=== PATIENT | female | born 1935 | race Caucasian/White ===

== ENCOUNTER 2018-10-29 11:43 | Emergency (ER) | payer MEDICARE, OTHER ==
[~2018-10-29 11:43] MED LIST changes: -ALB6.7R INH; -AZIT-1 PO
--- NOTE | 2018-10-29 11:57 | ER Report ---
History and Physical Time Seen By MD: 11:58 Hx. of Stated Complaint: PATIENT WAS SENT BY URGENT CARE FOR CHEST PAIN HPI/ROS 83-year-old female presented to an urgent care for cough and congestion. She made mention of chest pain to the urgent care staff. She had an abnormal EKG and was subsequently sent to the emergency department. In the emergency department she denied chest pain. She states that she told the urgent care she is chest pain with her cough. She is able to stack and move would the past few days without having chest pain, however complains about a cough and shortness of breath. No nausea vomiting or diarrhea. She has never a smoker. No fever chills. She also reports mild peripheral edema in her lower extremities, but states that his actually improved. Remainder of the 14 system rev: Yes Allergies: Coded Allergies: Sulfa (Sulfonamide Antibiotics) (Verified Allergy, Severe, "Mouth Swelled", 04/29/16) Home Meds Active Scripts Albuterol Sulfate (PROVENTIL HFA) 6.7 Gm Inh, 1-2 PUFF INH 3-4XD for 7 Days, #1 INH Prov:REBECCA ABRAHAM MD 10/29/18 Azithromycin (ZITHROMAX) 250 Mg Tablet, 1 TAB PO QDAY for 4 Days, #4 TAB Prov:REBECCA ABRAHAM MD 10/29/18 Reported Medications Calcium Crb&Cit/D3/Min34/Carter (CITRACAL + BONE DENSITY TABLET) 1 Each Tablet, 1 EACH PO DAILY 04/06/16 Telmisartan (Telmisartan) 80 Mg Tablet, 1 TAB PO QDAY 04/06/16 Discontinued Reported Medications Cholecalciferol (Vitamin D3) (VITAMIN D-3) 2,000 Unit Capsule, PO, CAPSULE 04/29/16 Cyanocobalamin (Vitamin B-12) (VITAMIN B-12) 1,000 Mcg Tablet.er, PO 04/29/16 [place]-3 Fatty Acids (FISH OIL) Unknown Strength Capsule, 300 MG PO, CAPSULE 04/06/16 [Maxi Vision] Unknown Strength No Conflict Check 04/06/16 Denosumab (PROLIA) 60 Mg/1 Ml Injs, 60 MG SUBQ Every 6 Months 04/06/16 Reviewed Nurses Notes: Yes Old Medical Records Reviewed: Yes Hx Smoking: No Smoking Status: Never Smoker Hx Substance Use Disorder: No Hx Alcohol Use: Yes Constitutional Vital Sign - Last 24 Hours 10/29/18 10/29/18 10/29/18 10/29/18 11:43 11:51 11:52 12:12 Pulse ??? 112 Resp 24 B/P (MAP) 162/101 (121) 162/101 150/84 (106) Pulse Ox 96 O2 Delivery Room Air 10/29/18 10/29/18 10/29/18 10/29/18 12:13 12:20 12:23 12:30 Pulse 114 Resp 27 B/P (MAP) 147/91 (109) 143/93 (110) 142/90 (107) Pulse Ox 98 10/29/18 10/29/18 10/29/18 10/29/18 12:43 12:45 13:00 13:13 Pulse 116 114 Resp 21 35 B/P (MAP) 148/140 (143) 139/82 (101) Pulse Ox 92 95 10/29/18 10/29/18 10/29/18 10/29/18 13:15 13:30 14:00 14:15 Pulse 114 Resp 22 B/P (MAP) 91/75 (80) 154/87 (109) 127/90 (102) 143/97 (112) Pulse Ox 95 10/29/18 10/29/18 10/29/18 10/29/18 14:30 14:45 15:00 15:15 Pulse 113 116 Resp 9 24 B/P (MAP) 143/84 (103) 142/90 (107) 95/77 (83) Pulse Ox 96 89 Physical Exam General Appearance: The patient is alert, has no immediate need for airway protection and no current signs of toxicity. Eyes: Pupils equal and round no injection. Respiratory: Chest is non tender, lungs are clear to auscultation. Cardiac: regular rate and rhythm Gastrointestinal: Abdomen is soft and non tender, no masses, bowel sounds normal. Neck: Neck is supple and non tender. Extremities have full range of motion and are non tender. Skin: No rashes or lesions. DIFFERENTIAL DIAGNOSIS: After history and physical exam differential diagnosis was considered for shortness of breath including but not limited to pulmonary infectious process, COPD, asthma, pulmonary embolus and congestive heart failure. Medical Decision Making Data Points Result Diagram: 10/29/18 1138 10/29/18 1138 Laboratory Hematology Test 10/29/18 11:38 10/29/18 14:47 Red Blood Count 4.60 M/uL (4.17-5.56) Mean Corpuscular Volume 94.3 fL (80.0-96.0) Mean Corpuscular Hemoglobin 32.0 pg (26.0-33.0) Mean Corpuscular Hemoglobin Concent 33.9 g/dL (32.0-36.0) Red Cell Distribution Width 14.0 % (11.5-14.5) Mean Platelet Volume 8.0 fL (7.2-11.1) Neutrophils (%) (Auto) 79.9 % (39.4-72.5) Lymphocytes (%) (Auto) 14.7 % (17.6-49.6) Monocytes (%) (Auto) 4.7 % (4.1-12.4) Eosinophils (%) (Auto) 0.2 % (0.4-6.7) Basophils (%) (Auto) 0.5 % (0.3-1.4) Nucleated RBC Relative Count (auto) 0.0 /100WBC Neutrophils # (Auto) 8.0 K/uL (2.0-7.4) Lymphocytes # (Auto) 1.5 K/uL (1.3-3.6) Monocytes # (Auto) 0.5 K/uL (0.3-1.0) Eosinophils # (Auto) 0.0 K/uL (0.0-0.5) Basophils # (Auto) 0.0 K/uL (0.0-0.1) Nucleated RBC Absolute Count (auto) 0.00 K/uL D-Dimer Quantitative (PE/DVT) 0.95 ug/ml (0-0.50) Sodium Level 128 mmol/L (137-145) Potassium Level 4.8 mmol/L (3.5-5.0) Chloride Level 93 mmol/L (98-107) Carbon Dioxide Level 22 mmol/L (22-31) Blood Urea Nitrogen 12 mg/dl (7-18) Creatinine 0.80 mg/dl (0.52-1.04) Glomerular Filtration Rate Calc > 60.0 Random Glucose 127 mg/dl (75-110) Calcium Level 9.3 mg/dl (8.4-10.2) Total Bilirubin 0.9 mg/dl (0.2-1.3) Aspartate Amino Transf (AST/SGOT) 74 U/L (0-35) Alanine Aminotransferase (ALT/SGPT) 93 U/L (0-56) Alkaline Phosphatase 127 U/L (0-126) Total Protein 6.9 g/dl (6.3-8.2) Albumin 4.2 g/dl (3.5-5.0) Troponin I 0.029 ng/ml Chemistry Test 10/29/18 11:38 10/29/18 14:47 White Blood Count 10.0 k/uL (4.5-11.0) Red Blood Count 4.60 M/uL (4.17-5.56) Hemoglobin 14.7 g/dL (12.0-16.0) Hematocrit 43.4 % (34.0-47.0) Mean Corpuscular Volume 94.3 fL (80.0-96.0) Mean Corpuscular Hemoglobin 32.0 pg (26.0-33.0) Mean Corpuscular Hemoglobin Concent 33.9 g/dL (32.0-36.0) Red Cell Distribution Width 14.0 % (11.5-14.5) Platelet Count 337 K/uL (150-450) Mean Platelet Volume 8.0 fL (7.2-11.1) Neutrophils (%) (Auto) 79.9 % (39.4-72.5) Lymphocytes (%) (Auto) 14.7 % (17.6-49.6) Monocytes (%) (Auto) 4.7 % (4.1-12.4) Eosinophils (%) (Auto) 0.2 % (0.4-6.7) Basophils (%) (Auto) 0.5 % (0.3-1.4) Nucleated RBC Relative Count (auto) 0.0 /100WBC Neutrophils # (Auto) 8.0 K/uL (2.0-7.4) Lymphocytes # (Auto) 1.5 K/uL (1.3-3.6) Monocytes # (Auto) 0.5 K/uL (0.3-1.0) Eosinophils # (Auto) 0.0 K/uL (0.0-0.5) Basophils # (Auto) 0.0 K/uL (0.0-0.1) Nucleated RBC Absolute Count (auto) 0.00 K/uL D-Dimer Quantitative (PE/DVT) 0.95 ug/ml (0-0.50) Glomerular Filtration Rate Calc > 60.0 Calcium Level 9.3 mg/dl (8.4-10.2) Total Bilirubin 0.9 mg/dl (0.2-1.3) Aspartate Amino Transf (AST/SGOT) 74 U/L (0-35) Alanine Aminotransferase (ALT/SGPT) 93 U/L (0-56) Alkaline Phosphatase 127 U/L (0-126) Total Protein 6.9 g/dl (6.3-8.2) Albumin 4.2 g/dl (3.5-5.0) Troponin I 0.029 ng/ml Coagulation Test 10/29/18 11:38 D-Dimer Quantitative (PE/DVT) 0.95 ug/ml ED Course/Re-evaluation ED Course 83-year-old female with cough and congestion for the past 4-5 days. Sent to the emergency department due to an EKG at the urgent care which showed a left bundle branch block. I asked the patient multiple times if she had chest pain, and she stated that the only time she has chest pain is when she coughs. Able to move N Stack wanted the past couple days without chest pain. Serial EKGs show some ischemia in the lateral leads. 2 troponins are negative. I spoke with the family at length about her abnormal EKG is and one mention of chest pain that she had at the urgent care. The family states that they agree its more viral URI and at this point do not want to get any more aggressive with a chest pain workup including an admission for a stress test. I do think she likely has a component of some early CHF given her pleural effusions and mild peripheral edema. I suggested to the family that they follow up with Saranya Melgar Wednesday morning to see if the symptoms have improved. I did discharge her with an albuterol MDI and a prescription for a Z-Zachary. Decision to Disposition Date: Oct 29, 2018 Decision to Disposition Time: 15:32 Depart Departure Latest Vital Signs Vital Signs Date Time Temp Pulse Resp B/P (MAP) Pulse Ox O2 Delivery O2 Flow Rate FiO2 10/29/18 15:15 95/77 (83) 10/29/18 15:00 116 24 89 10/29/18 11:52 Room Air Impression: Primary Impression: Acute bronchitis Condition: Improved Disposition: HOME OR SELF-CARE Referrals: SARANYA MELGAR (PCP) New Scripts Albuterol Sulfate (PROVENTIL HFA) 6.7 Gm Inh 1-2 PUFF INH 3-4XD for 7 Days, #1 INH Prov: REBECCA ABRAHAM MD 10/29/18 Azithromycin (ZITHROMAX) 250 Mg Tablet 1 TAB PO QDAY for 4 Days, #4 TAB Prov: REBECCA ABRAHAM MD 10/29/18 Patient Instructions: Acute Bronchitis (ED) Problem Qualifiers Primary Impression: Acute bronchitis Bronchitis organism: unspecified organism Qualified Codes: J20.9 - Acute bronchitis, unspecified REBECCA ABRAHAM MD Oct 29, 2018 11:57
[2018-10-29] MEDS ORDERED: NITROGLYCERIN 0.4 MG SUBL SL ONE (12:15)
[2018-10-29 12:17] LABS: PLATELET COUNT, AUTOMATED 337 K/uL (150-450)
--- NOTE | 2018-10-29 13:02 | RADIOLOGY IMAGING REPORT ---
FACILITY: [facility] - [place] PATIENT NAME: Shena Parsons : 1935 MR: [id number] V: [id number] EXAM DATE: ORDERING PHYSICIAN: REBECCA ABRAHAM TECHNOLOGIST: [place] [facility] [place] Shena [place] : 1935 Visit/Account:[id number] Date of Sevice: 10/29/2018 EXAMINATION: Portable AP Chest 10/29/2018 12:12 PM HISTORY: chest pain COMPARISON: 10:39 AM today FINDINGS: Cardiomediastinal contours: Stable cardiac size. Atherosclerotic aorta. Lungs and pleura: Small bilateral effusions with pulmonary vascular engorgement. Minimal consolidatio n the bases is likely simply atelectasis. Bones/soft tissues: Normal IMPRESSION: Pulmonary vascular congestion and small bilateral effusions suggesting borderline to mild CHF. Report Dictated By: Domingo Bosch MD at 10/29/2018 12:56 PM Report E-Signed By: Domingo Bosch MD at 10/29/2018 12:57 PM WSN:[id number]
[2018-10-29] MEDS ORDERED: NS(*) 0.9% 50 ML BAG 50 ML ONE (13:39)
[2018-10-29] MEDS ORDERED: IOPAMIDOL 76% 75 ML INFUS BTL 75 ML ONE (13:39)
--- NOTE | 2018-10-29 13:51 | EKG ---
FACILITY: [facility] - [place] PATIENT NAME: MADELINE HOWELL : [id number] MR: [id number] V: [id number] EXAM DATE: ORDERING PHYSICIAN: REBECCA ABRAHAM TECHNOLOGIST: Test Reason : chest pain Blood Pressure : / mmHG Vent. Rate : 113 BPM Atrial Rate : 113 BPM P-R Int : 156 ms QRS Dur : 134 ms QT Int : 374 ms P-R-T Axes : 000 -46 094 degrees QTc Int : 513 ms Sinus tachycardia Left axis deviation Incomplete LBBB Diffuse ST findings Abnormal ECG No previous ECGs available Confirmed by DEBBY GONZALEZ ([id number]) on 10/30/2018 5:26:53 AM Referred By: Confirmed By:DEBBY GONZALEZ
--- NOTE | 2018-10-29 13:51 | EKG ---
[facility] PATIENT NAME: MADELINE HOWELL : [id number] MR: [id number] V: [id number] EXAM DATE: ORDERING PHYSICIAN: REBECCA ABRAHAM TECHNOLOGIST: Test Reason : active chest pain Blood Pressure : / mmHG Vent. Rate : 113 BPM Atrial Rate : 113 BPM P-R Int : 200 ms QRS Dur : 118 ms QT Int : 360 ms P-R-T Axes : 000 -33 110 degrees QTc Int : 493 ms Sinus tachycardia Left axis deviation Incomplete left bundle branch block Nonspecific ST and T wave abnormality Abnormal ECG Confirmed by DEBBY GONZALEZ ([id number]) on 10/30/2018 5:27:14 AM Referred By: Confirmed By:DEBBY GONZALEZ
--- NOTE | 2018-10-29 14:17 | RADIOLOGY IMAGING REPORT ---
FACILITY: [facility] PATIENT NAME: Shena Parsons : 1935 MR: [id number] V: [id number] EXAM DATE: ORDERING PHYSICIAN: REBECCA ABRAHAM TECHNOLOGIST: Location: [facility] - [place], [place] Patient: Shena Parsons : 1935 Visit/Account:[id number] Date of Sevice: 10/29/2018 EXAMINATION: CT CHEST PULMONARY ANGIOGRAM COMPARISON: Chest x-ray same day. HISTORY: Chest pain with tachycardia. PROCEDURE: Pulmonary arterial phase imaging of the chest with 75 mL intravenous Isovue 370. Reconstru ction of the source data set includes multiplanar 2D in the sagittal and coronal planes, and 3D recon structed coronal slab MIP series. One of the following dose optimization techniques was utilized in the performance of this exam: Autom ated exposure control; adjustment of the mA and/or kV according to the patient's size; or use of an i terative reconstruction technique. Specific details can be referenced in the facility's radiology C T exam operational policy. FINDINGS: Pulmonary vasculature: There is poor opacification of the distal segmental and subsegmental vessels i n both lower lungs; this is favored to be secondary to altered contrast dynamics, potentially related to cardiac disease, rather than due to pulmonary emboli. No pulmonary artery filling defect is other ryder identified. Dilated 3.5 cm main pulmonary artery. Cardiac and mediastinum: Moderate global cardiac chamber enlargement. No pericardial effusion. No tho racic aortic aneurysm. Lymph nodes: Negative. Lungs and pleura: Bilateral [id number] pleural effusions. Mild atelectasis. No consolidation o r nodule. No pneumothorax or edema. Airways: Negative. Upper abdomen: No evidence of acute disease within the visualized upper abdomen. Osseous structures: Mid and lower thoracic spine mild to moderate multilevel degenerative disc diseas e. At T11-T12, a posterior disc and osteophyte complex results in a mild to moderate degree of canal stenosis. No acute findings. IMPRESSION: 1. Limited evaluation of the lower lung distal segmental and subsegmental vessels. No pulmonary embol ism is otherwise identified. 2. Moderate cardiac chamber enlargement. Dilated main pulmonary artery is suggestive of pulmonary art elisabeth hypertension. 3. Small to moderate bilateral pleural effusions. No definite edema. Report Dictated By: Bobby Bradley MD at 10/29/2018 2:06 PM Report E-Signed By: Bobby Bradley MD at 10/29/2018 2:13 PM WSN:[id number]
[2018-10-29 15:15] VITALS: BP 95/77
[2018-10-29] MEDS ORDERED: AZITHROMYCIN 250 MG TAB PO ONE (15:15)
[2018-10-29] MEDS ORDERED: AZIT-1 PO (15:34)
[2018-10-29] MEDS ORDERED: ALB6.7R INH (15:34)
== END 2018-10-29 15:50 | disposition home or self-care (01) ==
LOC: ER 11:58
DX: J20.9 Acute bronchitis, unspecified (principal); I44.7 Left bundle-branch block, unspecified
CPT/HCPCS: 36415; 71045; 71275; 84484; 85025; 85379; 93005; 99284; J7050; Q0144; Q9967; 82040; 82247; 82310; 82374; 82435; 82565; 82947; 84075; 84132; 84155; 84295; 84450; 84460; 84520

== ENCOUNTER → 2018-10-29 | Outpatient (CLI) | payer MEDICARE, OTHER ==
[~2018-10-29] MED LIST: ALB6.7R INH; AZIT-1 PO; CALC-854 PO; CHOL200074 PO; CYAN100015 PO; DEN60I SUBQ; MAXI VISION; OMEG300C PO; TELM80TA4 PO
== END ==
LOC: AMB 11:33
PROVIDERS: ATTEND Nurse Practitioner
DX: R07.9 Chest pain, unspecified (principal); R53.1 Weakness; R06.02 Shortness of breath
CPT/HCPCS: A0425; A0427

== ENCOUNTER → 2018-10-29 | Outpatient (REF) | payer MEDICARE, OTHER ==
[2018-10-29 11:11] LABS: PLATELET COUNT, AUTOMATED 308 K/uL (150-450)
== END ==
PROVIDERS: ATTEND Nurse Practitioner Family
DX: R06.00 Dyspnea, unspecified (principal); R05 Cough
CPT/HCPCS: 82040; 82247; 82310; 82374; 82435; 82565; 82947; 83880; 84075; 84132; 84155; 84295; 84450; 84460; 84484; 84520; 85025

== ENCOUNTER → 2018-11-14 | Outpatient (CLI) | payer MEDICARE, OTHER ==
[~2018-11-14] MED LIST changes: +ALB6.7R INH; +AZIT-1 PO
--- NOTE | 2018-11-14 12:04 | RADIOLOGY IMAGING REPORT ---
FACILITY: [facility] - [place] PATIENT NAME: Shena Parsons : 1935 MR: [id number] V: [id number] EXAM DATE: [id number] ORDERING PHYSICIAN: MAURA DE LA O TECHNOLOGIST: Location: [facility] - [place] Patient: Shena Parsons : 1935 Visit/Account:[id number] Date of Sevice: 11/14/2018 Exam type: CHEST PA AND LAT History: Acute bronchitis, 3-4 weeks Comparison: October 29, 2018. Findings: Cardiac silhouette is mildly enlarged but unchanged. There is blunting of both costophrenic angles t hat appear some are to the prior study. No evidence of overt pulmonary edema. Mild linear stranding in the lung bases also appear similar to the prior study. There are extensive degenerative changes of the thoracic spine IMPRESSION: 1. Blunting the costophrenic angles are similar to the prior study may represent small residual pleu ral effusions versus pleural thickening Linear stranding the lung bases consistent with atelectasis versus scarring Myocardial megaly unchanged although no evidence of overt pulmonary edema Report Dictated By: June Castro MD at 11/14/2018 11:57 AM Report E-Signed By: June Castro MD at 11/14/2018 12:00 PM WSN:[email or web address]
== END ==
LOC: RAD 10:02
PROVIDERS: ATTEND Nurse Practitioner Family
DX: J20.9 Acute bronchitis, unspecified (principal); R05 Cough
CPT/HCPCS: 71046

== ENCOUNTER → 2018-11-18 | Outpatient (CLI) | payer MEDICARE, OTHER ==
--- NOTE | 2018-11-18 12:47 | EKG ---
[place] [facility] [place] MADELINE HOWELL : [id number] MR: [id number] V: [id number] EXAM DATE: ORDERING PHYSICIAN: ERICH THEODORE TECHNOLOGIST: Test Reason : I47.2 and I44.7 Blood Pressure : / mmHG Vent. Rate : 117 BPM Atrial Rate : 234 BPM P-R Int : 000 ms QRS Dur : 108 ms QT Int : 350 ms P-R-T Axes : 185 -27 133 degrees QTc Int : [address] and T wave abnormality, consider lateral ischemia Abnormal ECG When compared with ECG of 29-OCT-2018 12:20, Atrial flutter has replaced Sinus rhythm Incomplete left bundle branch block is no longer present Confirmed by DERIK JIM ([id number]) on 11/18/2018 9:06:39 PM Referred By: Confirmed By:DERIK JIM
== END ==
LOC: RESP 12:23
PROVIDERS: ATTEND Nurse Practitioner Family
DX: R94.31 Abnormal electrocardiogram [ECG] [EKG] (principal)
CPT/HCPCS: 93005

== ENCOUNTER → 2018-12-23 | Outpatient (CLI) | payer MEDICARE, OTHER ==
--- NOTE | 2018-12-23 11:23 | EKG ---
[place] [facility] [place] MADELINE HOWELL : [id number] MR: [id number] V: [id number] EXAM DATE: ORDERING PHYSICIAN: ERICH THEODORE TECHNOLOGIST: Test Reason : I47.2 Blood Pressure : / mmHG Vent. Rate : 109 BPM Atrial Rate : 119 BPM P-R Int : 000 ms QRS Dur : 104 ms QT Int : 348 ms P-R-T Axes : 000 -25 117 degrees QTc Int : 468 ms Atrial fibrillation with rapid ventricular response Nonspecific ST and T wave abnormality Abnormal ECG When compared with ECG of 18-NOV-2018 12:28, Atrial fibrillation has replaced Atrial flutter Confirmed by KAMAR EMERY ([id number]) on 12/23/2018 8:06:50 PM Referred By: Confirmed By:KAMAR EMERY
== END ==
LOC: RESP 10:49
PROVIDERS: ATTEND Nurse Practitioner Family
DX: I48.91 Unspecified atrial fibrillation (principal); I47.2 Ventricular tachycardia; R94.31 Abnormal electrocardiogram [ECG] [EKG]
CPT/HCPCS: 93005